=== PATIENT | female | born 1975 | race Caucasian/White ===

== ENCOUNTER 2017-04-01 12:05 | Outpatient (CLI) | payer BC | END 2017-04-01 12:06 | disposition home or self-care (01) | LOC: BICMAMMO 12:05 | PROVIDERS: ATTEND Family Medicine | DX: Z12.31 Encounter for screening mammogram for malignant neoplasm of breast (principal) | CPT/HCPCS: 77063; 77067 ==

== ENCOUNTER 2017-10-26 09:08 | Outpatient (CLI) | payer BC | END 2017-10-26 09:09 | disposition home or self-care (01) | LOC: BICULT 09:08 | PROVIDERS: ATTEND Otolaryngology Plastic Surgery within the Head & Neck | DX: D49.7 Neoplasm of unspecified behavior of endocrine glands and other parts of nervous system (principal); E04.1 Nontoxic single thyroid nodule | CPT/HCPCS: 76536; 85025; 85652; 86140 ==

== ENCOUNTER 2022-12-15 15:04 | Outpatient (CLI) | payer BC | END 2022-12-15 15:05 | disposition home or self-care (01) | LOC: BICRAD 15:04 | PROVIDERS: ATTEND Internal Medicine Gastroenterology | DX: R05.3 Chronic cough (principal); L88 Pyoderma gangrenosum; K51.90 Ulcerative colitis, unspecified, without complications; Z86.010 Personal history of colon polyps | CPT/HCPCS: 71046 ==

== ENCOUNTER 2023-01-26 11:57 | Outpatient (CLI) | payer BC | END 2023-01-26 11:58 | disposition home or self-care (01) | LOC: BICULT 11:57 | PROVIDERS: ATTEND Family Medicine | DX: E04.1 Nontoxic single thyroid nodule (principal) | CPT/HCPCS: 76536 ==

== ENCOUNTER 2023-02-25 12:18 | Outpatient (CLI) | payer BC | END 2023-02-25 12:19 | disposition home or self-care (01) | LOC: BICMAMMO 12:18 | PROVIDERS: ATTEND Family Medicine | DX: Z12.31 Encounter for screening mammogram for malignant neoplasm of breast (principal); Z80.3 Family history of malignant neoplasm of breast | CPT/HCPCS: 77063; 77067 ==

== ENCOUNTER 2023-06-18 10:23 | Outpatient (CLI) | payer BC ==
[2023-06-18] MEDS ORDERED: Iopamidol 370 76% 100 ML VIAL ONE (12:00)
== END 2023-06-18 10:24 | disposition home or self-care (01) ==
LOC: BICCT 10:23
PROVIDERS: ATTEND Internal Medicine Gastroenterology
DX: K51.50 Left sided colitis without complications (principal); R70.0 Elevated erythrocyte sedimentation rate
CPT/HCPCS: 71260; Q9967

== ENCOUNTER 2023-12-06 10:34 | Outpatient (CLI) | payer BC | END 2023-12-06 10:35 | disposition home or self-care (01) | LOC: ULT 10:34 | PROVIDERS: ATTEND Internal Medicine Gastroenterology | DX: K51.90 Ulcerative colitis, unspecified, without complications (principal); R10.13 Epigastric pain; R19.7 Diarrhea, unspecified; R05.3 Chronic cough; K80.20 Calculus of gallbladder without cholecystitis without obstruction | CPT/HCPCS: 76705 ==

== ENCOUNTER 2023-12-20 09:53 | Outpatient (CLI) | payer BC | END 2023-12-20 09:54 | disposition home or self-care (01) | LOC: RAD 09:53 | PROVIDERS: ATTEND Internal Medicine Critical Care Medicine | DX: R06.00 Dyspnea, unspecified (principal) | CPT/HCPCS: 71046 ==

== ENCOUNTER 2024-02-24 13:23 | Outpatient (CLI) | payer BC | END 2024-02-24 13:24 | disposition home or self-care (01) | LOC: BICULT 13:23 | PROVIDERS: ATTEND Family Medicine | DX: E04.1 Nontoxic single thyroid nodule (principal) | CPT/HCPCS: 76536 ==

== ENCOUNTER 2024-12-18 11:04 | Outpatient (CLI) | payer BC | END 2024-12-18 11:05 | disposition home or self-care (01) | LOC: RAD 11:04 | PROVIDERS: ATTEND Internal Medicine Critical Care Medicine | DX: R06.00 Dyspnea, unspecified (principal) | CPT/HCPCS: 71046 ==